=== PATIENT | male | born 1960 | race Caucasian/White ===

== ENCOUNTER 2023-08-26 12:45 | Emergency (ER) | payer MEDICAID ==
[~2023-08-26] VITALS: Ht 170.2 cm; Wt 96.0 kg
[2023-08-26] MEDS ORDERED: ALBUTEROL (0.083%) 2.5MG/3ML NEB HHN STA (12:59)
[2023-08-26] MEDS ORDERED: IPRATROPIUM BROMIDE (0.02%) 0.5MG/2.5ML NEB HHN STA (12:59)
[2023-08-26] MEDS ORDERED: METHYLPREDNISOLONE SOD SUCC 125MG/2ML (ACT-O-VIAL) IV STA (12:59)
[2023-08-26] MEDS ORDERED: AZITHROMYCIN 500MG/250ML 250 ML IV ONE (13:00)
[2023-08-26] MEDS ORDERED: CEFTRIAXONE 1GM PREMIX 50 ML IV ONE (13:00)
[2023-08-26] MEDS ORDERED: SODIUM CHLORIDE 0.9% 1000ML BAG (SEPSIS BOLUS) IV ONE (13:00)
[2023-08-26 13:23] VITALS: PULSE 108; RESP 13; O2SAT 99
[2023-08-26 14:03] LABS: HEMOGLOBIN. 13.3 g/dL (14.0-18.0); MEAN CORPUSCULAR HEMOGLOBIN 30.5 pg (28.0-32.0); MEAN CORPUSCULAR HGB CONC 33.2 g/dL (31.0-37.0); MEAN CORPUSCULAR VOLUME 91.7 fL (80.0-94.0); MEAN PLATELET VOLUME 10.4 fl (7.4-10.4); PLATELET 150 x1000/uL (130-400); RED BLOOD CELL COUNT 4.37 mill/uL (4.7-6.1); RED CELL DISTRIBUTION WIDTH 13.3 % (11.6-14.6); WHITE BLOOD COUNT 6.2 x1000/uL (4.5-11.0)
[2023-08-26 14:06] LABS: ALANINE AMINOTRANSFERASE 32 IU/L (10-49); ALBUMIN 3.8 g/dL (3.2-4.8); ASPARTATE AMINOTRANSFERASE 34 IU/L (<34); BILIRUBIN TOTAL 1.2 mg/dL (0.1-1.0); CALCIUM 8.8 mg/dL (8.7-10.4); CARBON DIOXIDE 25 mEq/L (21-32); CHLORIDE 98 mEq/L (98-107); CREATININE 1.1 mg/dL (0.6-1.3); GLUCOSE 308 mg/dL (70-105); POTASSIUM 3.7 mEq/L (3.5-5.1); PROTEIN TOTAL 6.9 g/dL (6.0-8.3); SODIUM 132 mEq/L (136-145); TROPONIN I HIGH SENSITIVITY 42 ng/L (3.0-53); UREA NITROGEN BLOOD 18 mg/dL (9-23)
[2023-08-26 14:10] LABS: DIFFERENTIAL COMMENT 1
[2023-08-26 14:23] LABS: LACTIC ACID 2.6 mmol/L (0.4-2.0)
[2023-08-26 14:40] LABS: PLATELET ESTIMATE NORMAL
[2023-08-26] MEDS ORDERED: OSELTAMIVIR 75MG CAPSULE PO ONE (16:00)
[2023-08-26 17:21] LABS: CLARITY URINE CLOUDY (CLEAR); COLOR URINE DARK YELLOW (YELLOW); PH URINE 5.5 (4.5-8.0); PROTEIN URINE 3+ (NEGATIVE); SPECIFIC GRAVITY URINE 1.023 (1.005-1.030)
[2023-08-26 17:22] LABS: GLUCOSE URINE 3+ (NEGATIVE); KETONES URINE 1+ (NEGATIVE); NITRITE URINE NEGATIVE (NEGATIVE); OCCULT BLOOD URINE 2+ (NEGATIVE)
[2023-08-26 17:23] LABS: LEUKOCYTE ESTERASE URINE NEGATIVE (NEGATIVE)
[2023-08-26 17:25] LABS: BACTERIA URINE 1+; FINE GRANULAR CASTS URINE 0-5 /lpf; SQUAMOUS EPITHELIAL CELL URINE 1+ /lpf (RARE/1+); WBC URINE 0-2 /hpf (0-2)
[2023-08-26 17:30] VITALS: TEMP 98
[2023-08-26] MEDS ORDERED: ONDANSETRON HCL 4MG/2ML INJ IV PRN (19:45)
[2023-08-26] MEDS ORDERED: CLONIDINE 0.1MG TABLET PO PRN (19:45)
[2023-08-26] MEDS ORDERED: MAGNESIUM/ALUMINUM HYDROXIDE/SIMETHICONE 30ML UDC PO PRN (19:45)
[2023-08-26] MEDS ORDERED: IPRATROPIUM/ALBUTEROL 0.5-3(2.5)MG/3ML NEB HHN PRN (19:45)
[2023-08-26] MEDS ORDERED: ZOLPIDEM TARTRATE 5MG TABLET PO PRN (19:45)
[2023-08-26] MEDS ORDERED: SODIUM CHLORIDE 0.9% 1,000 ML IV SCH (19:45)
[2023-08-26] MEDS ORDERED: DOCUSATE SODIUM 100MG CAPSULE PO PRN (19:45)
[2023-08-26] MEDS ORDERED: GUAIFENESIN 200MG/10ML SUGAR FREE UDC PO PRN (19:45)
[2023-08-26] MEDS ORDERED: ACETAMINOPHEN 325MG TABLET PO PRN ×2 (19:45)
[2023-08-26] MEDS ORDERED: ENOXAPARIN 40MG/0.4ML SYR SUBCUT SCH (21:00)
[2023-08-26] MEDS ORDERED: METHYLPREDNISOLONE SOD SUCC 40MG VIAL IV SCH (22:00)
[2023-08-26] MEDS ORDERED: METHYLPREDNISOLONE SOD SUCC 40MG/ML (ACT-O-VIAL) IV SCH (22:00)
[2023-08-26 23:56] LABS: ALBUMIN 3.8 g/dL (3.2-4.8); PHOSPHORUS 3.3 mg/dL (2.5-4.9)
[2023-08-26 23:57] LABS: BILIRUBIN TOTAL 0.8 mg/dL (0.1-1.0); CREATINE KINASE 88 IU/L (46-171); IRON 14 ug/dL (65-175); PREALBUMIN < 5.0 mg/dl (10.0-40.0); TOTAL IRON BINDING CAPACITY 640 ug/dl (250-425); TROPONIN I HIGH SENSITIVITY 43 ng/L (3.0-53)
[2023-08-27] MEDS ORDERED: IPRATROPIUM/ALBUTEROL 0.5-3(2.5)MG/3ML NEB HHN SCH
[2023-08-27 00:16] VITALS: BP 119/65; PULSE 65; RESP 19
[2023-08-27 00:33] LABS: FERRITIN 424 ng/mL (22-322); FOLIC ACID (FOLATE) SERUM 5.69 ng/mL (>5.38); HEPATITIS A AB IGM NEGATIVE (Negative); HEPATITIS B CORE AB IGM NEGATIVE (Negative); HEPATITIS B SURFACE ANTIGEN NEGATIVE (Negative); HEPATITIS C AB NON REACTIVE (Neg) (Negative); PROSTRATE SPECIFIC AG TOTAL 1.67 ng/mL (0.0-4.0); VITAMIN B12 SERUM 618 pg/mL (211-911)
[2023-08-27] MEDS ORDERED: CEFTRIAXONE 1GM PREMIX 50 ML IV SCH (09:00)
[2023-08-27] MEDS ORDERED: AZITHROMYCIN 500 MG in DEXT 5% WATER 250 ML IV SCH (11:00)
[2023-08-27] MEDS ORDERED: AZITHROMYCIN 500MG in DEXTROSE 5% WATER 250ML IV SCH (13:00)
[2023-08-27] MEDS ORDERED: CEFTRIAXONE 1,000 MG in DEXTROSE 5% WATER 50 ML IV SCH (14:00)
[2023-08-27] MEDS ORDERED: FAMOTIDINE 20MG TABLET PO SCH (21:00)
== END 2023-08-27 00:18 | disposition short-term general hospital (02) ==
LOC: ER 12:45 → CANBEDREQ 20:48 → ER 08-27 00:18
DX: J45.909 Unspecified asthma, uncomplicated (principal); A41.9 Sepsis, unspecified organism; R65.20 Severe sepsis without septic shock; I95.9 Hypotension, unspecified; E11.9 Type 2 diabetes mellitus without complications; D50.8 Other iron deficiency anemias; N42.9 Disorder of prostate, unspecified; I10 Essential (primary) hypertension; Z20.822 Contact with and (suspected) exposure to COVID-19
CPT/HCPCS: 80053; 81003; 82040; 82247; 82550; 82607; 82728; 82746; 83036; 83880; 83540; 83550; 83605; 83690; 83735; 84100; 84134; 85025; 87340; 84153; 87040; 87086; 87186; 84484; 87804 ×2; 87077; 36415; 86705; 86709; 84145; 71045; 94640; 93005; 96368; 96361; 96365; 96366; 96375; 96376; 99291; 87426; J0456; J0696; J2920; J2930; Z7610 ×8; J7030; C9803; G0103